=== PATIENT | male | born 1980 | race Caucasian/White ===

== ENCOUNTER 2016-08-18 15:38 | Emergency (ER) | payer BC, OTHER ==
[2016-08-18] MEDS ORDERED: predniSONE 20 MG Tab PO ONE (15:53)
[2016-08-18] MEDS ORDERED: Albuterol/Ipratropium 3.0-0.5 MG/3 ML Neb Soln NEB ONE (15:53)
--- NOTE | 2016-08-18 15:58 | EDM.PDOC ---
ED HPI GENERAL MEDICAL PROBLEM - General Chief Complaint: General Stated Complaint: COUGH Time Seen by Provider: 08/18/16 15:43 Source of Information: Reports: Patient History Limitations: Reports: No limitations - History of Present Illness INITIAL COMMENTS - FREE TEXT/NARRATIVE: History of present illness: [] Patient's had a five-day history of cough with fevers and shortness of breath. He does not have a history of asthma but states he has used inhalers in the past around 2003 when he quit smoking. He denies any chest pain Review of systems: As per history of present illness and below otherwise all systems reviewed and negative. Past medical history: As per history of present illness and as reviewed below otherwise noncontributory. Surgical history: As per history of present illness and as reviewed below otherwise noncontributory. Social history: No reported history of drug or alcohol abuse. Family history: As per history of present illness and as reviewed below otherwise noncontributory. Physical exam: General: Well developed, well nourished in NAD HEENT: Atraumatic, normocephalic, pupils reactive, negative for conjunctival pallor or scleral icterus, mucous membranes moist, throat clear, neck supple, nontender, trachea midline. Lungs: Clear bilateral wheezing respiratory for, breath sounds equal bilaterally , chest nontender. No respiratory distress Heart: S1S2, regular, negative for clicks, rubs, or JVD. Abdomen: Soft, nondistended, nontender. Negative for masses or hepatosplenomegaly. Negative for costovertebral tenderness. Pelvis: Stable nontender. Genitourinary: Deferred. Rectal: Deferred. Extremities: Atraumatic, negative for cords or calf pain. Neurovascular unremarkable. Neuro: Awake, alert, oriented. Cranial nerves II through XII unremarkable. Cerebellum unremarkable. Motor and sensory unremarkable throughout. Exam nonfocal. Diagnostics: [] Chest x-ray negative Therapeutics: [] DuoNeb and prednisone with improvement Impression: [] Viral bronchitis Plan: [] Prednisone continue inhalers as needed to up PMD Definitive disposition and diagnosis as appropriate pending reevaluation and review of above. Mid-Sternal Chest Pain Score (Numeric/FACES): 1 - Related Data Allergies Allergy/AdvReac Type Severity Reaction Status Date / Time No Known Allergies Allergy Verified 08/18/16 15:57 Home Meds: Home Meds Lisinopril 20 mg PO DAILY 08/18/16 [History] predniSONE [Prednisone] 40 mg PO DAILY #10 tablet 08/18/16 [Rx] ED ROS GENERAL - Review of Systems Review Of Systems: See Below (See history of present illness) ED EXAM, GENERAL - Physical Exam Exam: See Below (The history of present illness) Course - Vital Signs Last Recorded V/S: Last Vital Signs Temp 35.4 C 08/18/16 15:51 Pulse 92 08/18/16 15:51 Resp 18 08/18/16 15:51 BP 127/63 08/18/16 15:51 Pulse Ox 94 L 08/18/16 15:51 - Orders/Labs/Meds Orders: Active Orders 24 hr Category Date Time Status RT Aerosol Therapy [RC] ASDIRECTED Care 08/18/16 15:54 Active Chest 2V [CR] Stat Exams 08/18/16 15:53 Taken CULTURE STREP A CONFIRMATION [RM] Stat Lab 08/18/16 16:13 Results STREP SCRN A RAPID W CULT CONF [RM] Stat Lab 08/18/16 16:13 Results Meds: Medications Discontinued Medications Generic Name Dose Route Start Last Admin Trade Name Edenilson PRN Reason Stop Dose Admin Albuterol/Ipratropium 3 ml 08/18/16 15:53 08/18/16 16:10 Duoneb 3.0-0.5 Mg/3 Ml NEB 08/18/16 15:54 3 ml ONETIME ONE Administration Prednisone 60 mg 08/18/16 15:53 08/18/16 16:10 Prednisone PO 08/18/16 15:54 60 mg ONETIME ONE Administration Departure - Departure Time of Disposition: 17:44 Disposition: Home, Self-Care 01 Condition: good Clinical Impression: Bronchitis Prescriptions: predniSONE [Prednisone] 40 mg PO DAILY #10 tablet Referrals: PCP,None [Primary Care Provider] - Forms: ED Department Discharge Additional Instructions: The following information is given to patients seen in the emergency department who are being discharged to home. This information is to outline your options for follow-up care. We provide all patients seen in our emergency department with a follow-up referral. The need for follow-up, as well as the timing and circumstances, are variable depending upon the specifics of your emergency department visit. If you don't have a primary care physician on staff, we will provide you with a referral. We always advise you to contact your personal physician following an emergency department visit to inform them of the circumstance of the visit and for follow-up with them and/or the need for any referrals to a consulting specialist. The emergency department will also refer you to a specialist when appropriate. This referral assures that you have the opportunity for follow-up care with a specialist. All of these measure are taken in an effort to provide you with optimal care, which includes your follow-up. Under all circumstances we always encourage you to contact your private physician who remains a resource for coordinating your care. When calling for follow-up care, please make the office aware that this follow-up is from your recent emergency room visit. If for any reason you are refused follow-up, please contact the [facility] Emergency Department at and asked to speak to the emergency department charge nurse. Prednisone once a day for 5 days, use inhalers as directed [facility] [address] [place] [id number] - My Orders Last 24 Hours: My Active Orders 08/18/16 15:53 Chest 2V [CR] Stat 08/18/16 15:54 RT Aerosol Therapy [RC] ASDIRECTED 08/18/16 16:13 CULTURE STREP A CONFIRMATION [RM] Stat STREP SCRN A RAPID W CULT CONF [RM] Stat - Assessment/Plan Last 24 Hours: My Active Orders 08/18/16 15:53 Chest 2V [CR] Stat 08/18/16 15:54 RT Aerosol Therapy [RC] ASDIRECTED 08/18/16 16:13 CULTURE STREP A CONFIRMATION [RM] Stat STREP SCRN A RAPID W CULT CONF [RM] Stat
[2016-08-18 17:59] VITALS: BP 125/70
--- NOTE | 2016-08-19 11:14 | CR ---
EXAM DATE: 08/18/16 PATIENT'S AGE: 35 Patient: JOSE MIGUEL VERGARA Facility: [place], [place] Site . Site : [id number] Study: XRay Chest [id number] 4:46:23 PM Ordering Physician: Manoj Tracey Final Report: INDICATION: cough x5 days TECHNIQUE: Chest 2 views COMPARISON: None FINDINGS: Cardiovascular and mediastinum: Heart size and vasculature are normal in caliber and appearance. Mediastinum is within normal limits. Lungs and pleural spaces: No focal consolidation. No sign of pleural effusion. No pneumothorax. Bones and soft tissues: No significant findings. IMPRESSION: No acute cardiopulmonary disease. Dictated by Tommy Leonard MD @ 08/18/2016 4:50:41 PM Dictated by: Tommy Leonard MD @ 08/18/2016 16:51:05 (Electronic Signature) Report Signed by Proxy and Original Signed Document filed in the Medical Record. SHAYNA
== END 2016-08-18 17:58 | disposition home or self-care (01) ==
LOC: MW.ED 15:38
DX: J20.8 Acute bronchitis due to other specified organisms (principal); Z79.899 Other long term (current) drug therapy
CPT/HCPCS: 71020; 87081; 87880; 94664; 99284; A9270